=== PATIENT | female | born 1945 | race Caucasian/White ===

== ENCOUNTER 2020-01-05 16:28 | Emergency (ER) | payer MEDICARE, OTHER ==
[2020-01-05 17:12] LABS: CHLORIDE,CL 104 mmol/L (98-107); SODIUM,NA 139 mmol/L (136-145)
[2020-01-05 17:14] LABS: ANION GAP 13.7 mmol/L (10-20)
[2020-01-05] MEDS: Sodium Chloride 0.9% 1,000 ML IV ONE ×2 (17:32→22:12)
[2020-01-05] MEDS: fentaNYL 100 MCG/2 ML SDV IVPUSH ONE ×2 (17:40→22:48)
[2020-01-05] MEDS: cefTRIAXone 1 GM Vial IVPUSH ONE (17:40)
[2020-01-05] MEDS: Ketorolac 30 MG/ML SDV IVPUSH ONE (18:10)
--- NOTE | 2020-01-05 18:51 | CT ---
[id number] CT/CT Abdomen Pelvis WO IV EXAM: CT Abdomen Pelvis WO IV CLINICAL DATA: POSSIBLE KIDNEY STONE/PYELO. COMPARISON STUDY: June 02, 2014. FINDINGS: Dependent atelectasis at the lung bases bilaterally. Within the distal 3rd of the right ureter there is a 4 mm stone resulting in mild to moderate right hydroureteronephrosis. No other stones are identified. The left kidney is unremarkable. The liver, spleen, pancreas, and adrenal glands are unremarkable. Cholelithiasis without evidence of acute cholecystitis. No bowel obstruction or inflammation. No lymphadenopathy, free fluid, or pneumoperitoneum. Scattered changes of spondylosis the spine. No fracture or osseous lesion. IMPRESSION: 1. 4 mm obstructing stone within the distal 3rd of the right ureter resulting in mild to moderate right hydroureteronephrosis. Davion Curtis DO 01/05/20 [id number] Thank you for allowing us to participate in the care of your patient.
--- NOTE | 2020-01-05 18:58 | EDM.PDOC ---
ED HPI GENERAL MEDICAL PROBLEM - General Chief Complaint: Abdominal Pain Stated Complaint: PAIN IN LOWER ABDOMEN Time Seen by Provider: 01/05/20 16:45 Source of Information: Reports: Patient, Provider (Dr. Arzate), RN, RN Notes Reviewed History Limitations: Reports: No Limitations - History of Present Illness INITIAL COMMENTS - FREE TEXT/NARRATIVE: Patient presents to ER from the clinic with complaint of right lower quadrant, right flank pain beginning on Sunday evening. Patient states she was in [facility] with family and did not want to get "stuck" in a hospital in [place]. She and her left [place] at 5 AM this morning to drive back home. Patient states she was very uncomfortable and pain all the way home. Denies nausea or vomiting. Admits to chills. Rates pain 6-7/10. Patient states she has history of colon cancer approximately 10 years ago, has a colonoscopy every 6 months. Last colonoscopy was 1 week ago. She has not heard the results from that colonoscopy. States she does have a extensive history of colon polyps which tend to grow very quickly. Patient states her appendix has been removed, as well as both ovaries. States she still has her gallbladder. Denies diarrhea, states last bowel movement was yesterday, was hard. Denies any history of kidney stone. Onset: Sudden Onset Date: 01/04/20 Right FLank Pain Score (Numeric/FACES): 6 - Related Data Allergies Allergy/AdvReac Type Severity Reaction Status Date / Time No Known Allergies Allergy Verified 01/05/20 17:18 Home Meds: Home Meds . [Unable to Verify Home Med List] 01/05/20 [History] ED ROS GENERAL - Review of Systems Review Of Systems: Comprehensive ROS is negative, except as noted in HPI. ED EXAM, GI/ABD - Physical Exam Exam: See Below Exam Limited By: No Limitations General Appearance: Alert, WD/WN, Moderate Distress Eyes: Bilateral: Normal Appearance, EOMI Ears: Normal External Exam, Hearing Grossly Normal Nose: Normal Inspection Throat/Mouth: Normal Inspection, Normal Voice, No Airway Compromise Head: Atraumatic, Normocephalic Neck: Normal Inspection, Supple, Non-Tender, Full Range of Motion Respiratory/Chest: No Respiratory Distress, Lungs Clear, Normal Breath Sounds, No Accessory Muscle Use, Chest Non-Tender Cardiovascular: Normal Peripheral Pulses, Regular Rate, Rhythm, No Edema, No Gallop, No JVD, No Murmur, No Rub GI/Abdominal Exam: Normal Bowel Sounds, Soft, Tender (Right lower quadrant, right flank) (Female) Exam: Deferred Rectal (Female) Exam: Deferred Back Exam: Normal Inspection, Full Range of Motion, NT Extremities: Normal Inspection, Normal Range of Motion, Non-Tender, Normal Capillary Refill, No Pedal Edema Neurological: Alert, Oriented, CN II-XII Intact, Normal Cognition, Normal Gait, Normal Reflexes, No Motor/Sensory Deficits Psychiatric: Normal Affect, Normal Mood, Anxious Skin Exam: Warm, Dry, Intact, Normal Color, No Rash Lymphatic: No Adenopathy Course - Vital Signs Last Recorded V/S: Last Vital Signs Temp 99.2 F 01/05/20 19:35 Pulse 88 01/05/20 19:35 Resp BP 156/72 H 01/05/20 19:35 Pulse Ox 97 01/05/20 19:35 - Orders/Labs/Meds Orders: Active Orders 24 hr Category Date Time Status Sodium Chloride 0.9% [Normal Saline] 1,000 ml Med 01/05/20 21:59 Active IV ONETIME Medication Orders Sodium Chloride (Normal Saline) 1,000 mls @ 200 mls/hr IV ONETIME ONE Stop: 01/06/20 02:58 Last Admin: 01/05/20 22:12 Dose: 200 mls/hr Documented by: NYDIA Labs: Laboratory Tests 01/05/20 01/05/20 01/05/20 Range/Units 16:46 16:46 16:46 WBC 13.5 H (4.0-10.0) x10^3/uL RBC 5.03 (4.00-5.50) x10^6/uL Hgb 14.4 (12.0-16.0) g/dL Hct 42.8 (33.0-47.0) % MCV 85.1 (78.0-93.0) fL MCH 28.6 (26.0-32.0) pg MCHC 33.6 (32.0-36.0) g/dL RDW Coeff of Ike 13.8 (10.0-15.0) % Plt Count 244 (130-400) x10^3/uL Neut % (Auto) 80.2 H (50.0-80.0) % Lymph % (Auto) 12.8 L (25.0-50.0) % Bibb % (Auto) 6.8 (2.0-11.0) % Eos % (Auto) 0.0 (0.0-4.0) % Baso % (Auto) 0.2 (0.2-1.2) % Sodium 139 (136-145) mmol/L Potassium 3.7 (3.5-5.1) mmol/L Chloride 104 (98-107) mmol/L Carbon Dioxide 25 (21-32) mmol/L Anion Gap 13.7 (10-20) mmol/L BUN 14 (7-18) mg/dL Creatinine 1.8 H (0.55-1.02) mg/dL Est Cr Clr Drug Dosing TNP Estimated GFR (MDRD) 28 Glucose 128 H (74-106) mg/dL Lactic Acid 1.7 (0.4-2.0) mmol/L Calcium 8.9 (8.5-10.1) mg/dL Corrected Calcium 9.14 (8.5-10.1) mg/dL Total Bilirubin 0.6 (0.2-1.0) mg/dL AST 18 (15-37) U/L ALT 25 (14-59) U/L Alkaline Phosphatase 65 (46-116) U/L Total Protein 7.0 (6.4-8.2) g/dL Albumin 3.7 (3.4-5.0) g/dL Globulin 3.3 Albumin/Globulin Ratio 1.12 Urine Color (YELLOW) Urine Appearance (CLEAR) Urine pH (5.0-8.0) Ur Specific [place] Urine Protein (NEGATIVE) mg/dL Urine Glucose (UA) (NEGATIVE) mg/dL Urine Ketones (NEGATIVE) mg/dL Urine Occult Blood (NEGATIVE) Urine Nitrite (NEGATIVE) Urine Bilirubin (NEGATIVE) Urine Urobilinogen (0.2) EU/dL Ur Leukocyte Esterase (NEGATIVE) Urine RBC (NOT SEEN) /HPF Urine WBC (NOT SEEN) /HPF Ur Squamous Epith Cells (NEGATIVE) /HPF Urine Bacteria (NEGATIVE) /HPF Urine Mucus (NEGATIVE) /LPF 01/05/20 Range/Units 17:35 WBC (4.0-10.0) x10^3/uL RBC (4.00-5.50) x10^6/uL Hgb (12.0-16.0) g/dL Hct (33.0-47.0) % MCV (78.0-93.0) fL MCH (26.0-32.0) pg MCHC (32.0-36.0) g/dL RDW Coeff of Ike (10.0-15.0) % Plt Count (130-400) x10^3/uL Neut % (Auto) (50.0-80.0) % Lymph % (Auto) (25.0-50.0) % Bibb % (Auto) (2.0-11.0) % Eos % (Auto) (0.0-4.0) % Baso % (Auto) (0.2-1.2) % Sodium (136-145) mmol/L Potassium (3.5-5.1) mmol/L Chloride (98-107) mmol/L Carbon Dioxide (21-32) mmol/L Anion Gap (10-20) mmol/L BUN (7-18) mg/dL Creatinine (0.55-1.02) mg/dL Est Cr Clr Drug Dosing Estimated GFR (MDRD) Glucose (74-106) mg/dL Lactic Acid (0.4-2.0) mmol/L Calcium (8.5-10.1) mg/dL Corrected Calcium (8.5-10.1) mg/dL Total Bilirubin (0.2-1.0) mg/dL AST (15-37) U/L ALT (14-59) U/L Alkaline Phosphatase (46-116) U/L Total Protein (6.4-8.2) g/dL Albumin (3.4-5.0) g/dL Globulin Albumin/Globulin Ratio Urine Color Yellow (YELLOW) Urine Appearance Slightly cloudy H (CLEAR) Urine pH 5.5 (5.0-8.0) Ur Specific [place] 1.025 Urine Protein Negative (NEGATIVE) mg/dL Urine Glucose (UA) Negative (NEGATIVE) mg/dL Urine Ketones Negative (NEGATIVE) mg/dL Urine Occult Blood Moderate H (NEGATIVE) Urine Nitrite Negative (NEGATIVE) Urine Bilirubin Small H (NEGATIVE) Urine Urobilinogen 0.2 (0.2) EU/dL Ur Leukocyte Esterase Negative (NEGATIVE) Urine RBC 10-20 H (NOT SEEN) /HPF Urine WBC 0-5 (NOT SEEN) /HPF Ur Squamous Epith Cells Moderate H (NEGATIVE) /HPF Urine Bacteria Rare (NEGATIVE) /HPF Urine Mucus Few H (NEGATIVE) /LPF Meds: Medications Generic Name Dose Route Start Last Admin Trade Name Jorge PRN Reason Stop Dose Admin Sodium Chloride 1,000 mls @ 200 mls/hr 01/05/20 21:59 01/05/20 22:12 Normal Saline IV 01/06/20 02:58 200 mls/hr ONETIME ONE Administration Discontinued Medications Generic Name Dose Route Start Last Admin Trade Name Jorge PRN Reason Stop Dose Admin Ceftriaxone Sodium 1 gm 01/05/20 17:37 01/05/20 17:40 Rocephin IVPUSH 01/05/20 17:38 1 gm STAT ONE Administration Fentanyl 100 mcg 01/05/20 17:32 01/05/20 17:40 Sublimaze IVPUSH 01/05/20 17:33 100 mcg ONETIME ONE Administration Fentanyl 50 mcg 01/05/20 22:35 Sublimaze IVPUSH 01/05/20 22:36 ONETIME ONE Sodium Chloride 1,000 mls @ 999 mls/hr 01/05/20 17:32 01/05/20 17:32 Normal Saline IV 01/05/20 18:32 999 mls/hr ONETIME ONE Administration Ketorolac Tromethamine 30 mg 01/05/20 17:29 01/05/20 18:10 Toradol IVPUSH 01/05/20 17:30 Not Given ONETIME ONE - Radiology Interpretation Free Text/Narrative:: CT abdomen pelvis without contrast: 4 mm obstructing stone within the distal third of the right ureter resulting in mild to moderate right hydro-ureteral nephrosis See radiologist report - Re-Assessments/Exams Free Text/Narrative Re-Assessment/Exam: 01/05/20 22:43 Discussed patient case with Dr. Booker, urology at [facility] who states the patient should be transferred to [place] for stent placement tomorrow. He states hospitalist will admit. Patient case also discussed with Dr. Lilly who agreed to accept the patient for transfer. Departure - Departure Time of Disposition: 22:44 Disposition: DC/Tfer to Acute Hospital 02 Condition: Fair Clinical Impression: Kidney stone on right side, Hydroureteronephrosis - Discharge Information *PRESCRIPTION DRUG MONITORING PROGRAM REVIEWED*: No *COPY OF PRESCRIPTION DRUG MONITORING REPORT IN PATIENT IVON: No Referrals: Sary Jarquin DO [Primary Care Provider] - Forms: ED Department Discharge, Interfacility Transfer [facility] Sepsis Event Note (ED) - Focused Exam Vital Signs: Vital Signs Temp Pulse BP Pulse Ox 01/05/20 19:35 99.2 F 88 156/72 H 97 - My Orders Last 24 Hours: My Active Orders 01/05/20 21:59 Sodium Chloride 0.9% [Normal Saline] 1,000 ml IV ONETIME - Assessment/Plan Last 24 Hours: My Active Orders 01/05/20 21:59 Sodium Chloride 0.9% [Normal Saline] 1,000 ml IV ONETIME
== END 2020-01-05 23:05 | disposition short-term general hospital (02) ==
LOC: VM.ED 16:28
DX: N13.2 Hydronephrosis with renal and ureteral calculous obstruction (principal)
CPT/HCPCS: 74176; 80053; 81001; 83605; 85025; 96374; 96375; 96376; 99284; 99285-25; J0696; J3010; J7030